=== PATIENT | male | born 1955 | race Caucasian/White ===

== ENCOUNTER → 2023-12-17 12:49 | Outpatient (REF) | payer MEDICARE, OTHER, SELFPAY ==
[2023-12-17 12:55] LABS: % Basophils 0.6 % (0-2); % Eosinophils 0.9 % (0-6); % Immature Granulocytes 0.1 % (0-0.5); % Lymphocytes 14.6 % (20.5-51.1); % Neutrophils 75.8 % (42.2-75.2); Absolute Eosinophils 0.1 10^3/uL (0-0.7); Absolute Monocytes 0.6 10^3/uL (0.1-0.6); Absolute Neutrophils 5.3 10^3/uL (1.4-6.5); Hemoglobin 18.6 g/dL (13.0-18.0); Mean Corp Hgb Conc. 32.6 g/dL (33.0-37.0); Mean Corpuscular Hgb 29.7 pg (27.0-31.0); Mean Corpuscular Volume 91.1 fL (80.0-94.0); Mean Platelet Volume 10.7 fL (7.4-10.4); Platelet Count 131 10^3/uL (130-400); Red Blood Cell Count 6.26 10^6/uL (4.70-6.10); Red Cell Dist. Width 14.1 % (11.5-14.5)
== END ==
LOC: OIDL 12:49
PROVIDERS: ATTENDING PHYSICIAN Internal Medicine Hematology & Oncology
DX: D75.1 Secondary polycythemia (principal)
CPT/HCPCS: 85025